=== PATIENT | female | born 1970 | race Caucasian/White ===

== ENCOUNTER → 2018-02-11 | Outpatient (CLI) | payer BC ==
--- NOTE | 2018-02-11 22:41 | US ---
EXAMINATION TYPE: US pelvis complete transvag DATE OF EXAM: 02/11/2018 COMPARISON: NONE CLINICAL HISTORY: 48-year-old female D25.9 Fibroid Uterus. TECHNIQUE: Transabdominal sonographic images of the pelvis were acquired. Transvaginal sonographic images were medically necessary to better assess the following anatomy: Ovaries and endometrium Date of LMP: 01/26/2018, A1 FINDINGS: EXAM MEASUREMENTS: Uterus: 7.7 x 4.9 x 3.9 cm Endometrial Stripe: 0.5 cm Right Ovary: 1.8 x 1.3 x 1.1 cm Left Ovary: 1.9 x 1.4 x 1.3 cm 1. Uterus: Anteverted Heterogenous. No focal fibroid is seen. An 8 mm left-sided myometrial cyst is noted. 2. Endometrium: wnl 3. Right Ovary: wnl 4. Left Ovary: wnl 5. Bilateral Adnexa: wnl 6. Posterior cul-de-sac: no free fluid Cervix- nabothian cyst IMPRESSION: 1. No focal fibroid identified. However, there is mild heterogeneity to the myometrium which can be s een with diffuse small fibroid change or adenomyosis. 2. An 8 mm myometrial cyst is also present. This is nonspecific but can also be seen in the setting o f adenomyosis.
== END | disposition home or self-care (01) ==
LOC: RADUSWWP 15:28
PROVIDERS: ATTEND Obstetrics & Gynecology
DX: N85.8 Other specified noninflammatory disorders of uterus (principal)
CPT/HCPCS: 76830; 76856

== ENCOUNTER → 2018-02-18 | Outpatient (CLI) | payer BC ==
--- NOTE | 2018-02-18 16:32 | MM ---
Reason for exam: screening (asymptomatic). Baseline mammogram. Physical Findings: Nurse did not find any significant physical abnormalities on exam. MG 3D Screening Mammo W/Cad Bilateral CC and MLO view(s) were taken. XCCL view(s) were taken of the right breast. No prior studies available for comparison. There are scattered fibroglandular densities. No discrete abnormality. These results were verbally communicated with the patient and result sheet given to the patient on 02/18/18. ASSESSMENT: Negative, BI-RAD 1 RECOMMENDATION: Routine screening mammogram of both breasts in 1 year.
== END | disposition home or self-care (01) ==
LOC: RADMAMWWP 15:41
PROVIDERS: ATTEND Obstetrics & Gynecology
DX: Z12.31 Encounter for screening mammogram for malignant neoplasm of breast (principal)
CPT/HCPCS: 77063; 77067

== ENCOUNTER → 2019-01-01 | Outpatient (CLI) | payer BC ==
--- NOTE | 2019-01-02 08:23 | CT ---
EXAMINATION TYPE: CT abdomen wo/w con DATE OF EXAM: 01/01/2019 COMPARISON: Ultrasound 12/30/2018 HISTORY: pancreatic mass CT DLP: 1047.8 mGycm CONTRAST: CT scan of the abdomen and pelvis is performed without Oral Contrast and without and with IV Contrast , patient injected with 120 mL of Isovue 370. FINDINGS: LUNG BASES-: No visible nodule. No infiltrate. LIVER/GB: There is evidence of cholelithiasis. No space occupying hepatic lesion. Biliary tree is of normal caliber. PANCREAS: No inflammation. No distinct mass. SPLEEN: No splenic enlargement. No lesion seen. ADRENALS: No nodule. No thickening. KIDNEYS/BLADDER: No hydronephrosis. Nonobstructing left-sided 4 mm calculus. No distinct renal mass. Urinary bladder grossly unremarkable. BOWEL: Normal appendix. Normal bowel caliber. No inflammation. LYMPH NODES: No greater than 1cm abdominal or pelvic lymph nodes are appreciated. AORTA: No significant abnormality. OSSEOUS STRUCTURES: No significant abnormality is seen. OTHER: No significant additional abnormality is seen. IMPRESSION: 1. No evidence of pancreatic mass. 2. Cholelithiasis.
== END | disposition home or self-care (01) ==
LOC: RADCTMAIN 16:35
PROVIDERS: ATTEND Internal Medicine
DX: K80.20 Calculus of gallbladder without cholecystitis without obstruction (principal); Z88.5 Allergy status to narcotic agent
CPT/HCPCS: 74170; Q9967

== ENCOUNTER → 2019-04-13 | Outpatient (CLI) | payer BC ==
--- NOTE | 2019-04-14 10:18 | MM ---
Reason for exam: screening (asymptomatic). Last mammogram was performed 1 year and 2 months ago. Physical Findings: A clinical breast exam by your physician is recommended on an annual basis and results should be correlated with mammographic findings. MG Screening Mammo w CAD Bilateral CC and MLO view(s) were taken. Prior study comparison: February 18, 2018, bilateral MG 3d screening mammo w/cad. The breast tissue is heterogeneously dense. This may lower the sensitivity of mammography. No suspicious abnormality. No significant changes when compared with prior studies. ASSESSMENT: Negative, BI-RAD 1 RECOMMENDATION: Routine screening mammogram of both breasts in 1 year.
== END | disposition home or self-care (01) ==
LOC: RADMAMWWP 15:12
PROVIDERS: ATTEND Internal Medicine
DX: Z12.31 Encounter for screening mammogram for malignant neoplasm of breast (principal)
CPT/HCPCS: 77067

== ENCOUNTER → 2020-04-07 | Outpatient (CLI) | payer BC ==
--- NOTE | 2020-04-07 09:01 | XR ---
EXAMINATION TYPE: XR KUB DATE OF EXAM: 04/07/2020 HISTORY: Pain Comparison: None.Single KUB is submitted for interpretation. Findings: Right renal calculi: None Visualized. Right ureteral calculi: None Visualized. Left renal calculi: 5.2 mm left ureteral calculus Left ureteral calculi: None Visualized. Pelvic calcifications: None Visualized. Bowel gas pattern is unremarkable. No free air. No mass effects. IMPRESSION: 1. Left renal calculus.
--- NOTE | 2020-04-07 09:02 | US ---
EXAMINATION TYPE: US kidneys/renal and bladder DATE OF EXAM: 04/07/2020 COMPARISON: NONE CLINICAL HISTORY: N20.0 Calculus of kidney. History of kidney stones EXAM MEASUREMENTS: Right Kidney: 11.2 x 4.2 x 5.1 cm Left Kidney: 10.5 x 4.7 x 4.9 cm Right Kidney: no evidence of hydronephrosis or mass Left Kidney: stone lower pole = 0.6cm Bladder: appears wnl Bilateral Jets seen: yes There is no evidence for hydronephrosis at this point in time. No masses are identified. The urinar y bladder is anechoic. Bilateral ureteral jets are seen. IMPRESSION: Nonobstructing nephrolithiasis.
== END | disposition home or self-care (01) ==
LOC: RADUSWWP 08:24
PROVIDERS: ATTEND Urology
DX: N20.0 Calculus of kidney (principal)
CPT/HCPCS: 74018; 76770

== ENCOUNTER → 2020-04-15 | Outpatient (CLI) | payer BC ==
--- NOTE | 2020-04-18 09:38 | MM ---
Reason for exam: screening (asymptomatic). Last mammogram was performed 1 year ago. Physical Findings: A clinical breast exam by your physician is recommended on an annual basis and results should be correlated with mammographic findings. MG 3D Screening Mammo W/Cad Bilateral CC and MLO view(s) were taken. Prior study comparison: April 13, 2019, bilateral MG screening mammo w CAD. February 18, 2018, bilateral MG 3d screening mammo w/cad. There are scattered fibroglandular densities. No significant changes when compared with prior studies. ASSESSMENT: Benign, BI-RAD 2 RECOMMENDATION: Routine screening mammogram of both breasts in 1 year.
== END | disposition home or self-care (01) ==
LOC: RADMAMWWP 10:20
PROVIDERS: ATTEND Internal Medicine
DX: Z12.31 Encounter for screening mammogram for malignant neoplasm of breast (principal)
CPT/HCPCS: 77063; 77067

== ENCOUNTER → 2020-05-02 | Outpatient (CLI) | payer BC ==
[2020-05-02 10:59] LABS: Basophils # (A) 0.1 k/uL (0-0.2); Basophils % (A) 1 %; Eosinophils # (A) 0.2 k/uL (0-0.7); Eosinophils % (A) 2 %; HCT 44.5 % (34.0-46.0); HGB 14.2 gm/dL (11.4-16.0); Lymphocytes % (A) 20 %; MCH 28.5 pg (25.0-35.0); MCV 89.1 fL (80.0-100.0); Mean Platelet Volume 6.6; Monocytes # (A) 0.6 k/uL (0-1.0); Monocytes % (A) 6 %; Neutrophils % (A) 70 %; Platelet Count 426 k/uL (150-450); RBC 4.99 m/uL (3.80-5.40); RDW 13.1 % (11.5-15.5); WBC 10.1 k/uL (3.8-10.6)
[2020-05-02 17:53] LABS: African American GFR (CKD) 75.5 (60.0-200.0); Anion Gap 11.4 mmol/L (4.00-12.00); Calcium 10.1 mg/dL (8.7-10.3); Carbon Dioxide 24.6 mmol/L (21.6-31.8); Non-African American GFR(CKD) 65.2 (60.0-200.0)
== END | disposition home or self-care (01) ==
LOC: LABWHC1 09:19
PROVIDERS: ATTEND Urology
DX: N20.0 Calculus of kidney (principal)
CPT/HCPCS: 36415; 80048; 85025

== ENCOUNTER → 2020-05-16 | Outpatient (CLI) | payer BC ==
--- NOTE | 2020-05-16 11:25 | XR ---
EXAMINATION TYPE: XR KUB DATE OF EXAM: 05/16/2020 HISTORY: Pain Comparison: 04/07/2020 Single KUB is submitted for interpretation. Findings: Right renal calculi: None Visualized. Right ureteral calculi: None Visualized. Left renal calculi: left renal calculus measuring approximately 4.3 mm versus 5.2 mm previously. Left ureteral calculi: None Visualized. Pelvic calcifications: None Visualized. Bowel gas pattern is unremarkable. No free air. No mass effects. IMPRESSION: 1. Left renal calculus.
== END | disposition home or self-care (01) ==
LOC: RADXRMAIN 08:58
PROVIDERS: ATTEND Urology
DX: N20.0 Calculus of kidney (principal); Z98.890 Other specified postprocedural states
CPT/HCPCS: 74018

== ENCOUNTER → 2020-08-10 | Outpatient (CLI) | payer BC ==
[2020-08-10 10:47] LABS: HCT 43.4 % (34.0-46.0); HGB 13.5 gm/dL (11.4-16.0); Hypochromasia Slight; MCH 27.5 pg (25.0-35.0); MCHC 31.2 g/dL (31.0-37.0); MCV 88.3 fL (80.0-100.0); Mean Platelet Volume 7.1; Platelet Count 408 k/uL (150-450); RBC 4.92 m/uL (3.80-5.40); RDW 14.2 % (11.5-15.5); WBC 10.3 k/uL (3.8-10.6)
[2020-08-10 10:55] LABS: Appearance,Urine Cloudy (Clear); Bacteria,Urine Rare /hpf; Bilirubin,Urine Negative (Negative); Blood,Urine Negative (Negative); Color,Urine Yellow; Glucose,Urine (UA) Negative (Negative); Ketones,Urine Negative (Negative); Leukocyte Esterase,Urine Small (Negative); Mucus,Urine Rare /hpf; Nitrite,Urine Negative (Negative); PH, Urine 5.5 (5.0-8.0); Protein,Urine Negative (Negative); RBC,Urine 3 /hpf (0-5); Specific Gravity,Urine 1.012 (1.001-1.035); Squamous Epithelial Cell,Urine 36 /hpf (0-4); Urobilinogen,Urine <2.0 mg/dL (<2.0); WBC,Urine 5 /hpf (0-5)
[2020-08-10 11:00] LABS: ALT 90 U/L (4-34); AST 42 U/L (14-36); African American GFR (CKD) >90 (>60 ml/min/1.73 sqM); Albumin 4.7 g/dL (3.5-5.0); Alkaline Phosphatase 79 U/L (38-126); Anion Gap 11 mmol/L; Blood Urea Nitrogen 16 mg/dL (7-17); Calcium 9.7 mg/dL (8.4-10.2); Carbon Dioxide 26 mmol/L (22-30); Chloride 103 mmol/L (98-107); Glucose 126 mg/dL (74-99); Non-African American GFR(CKD) 89 (>60 ml/min/1.73 sqM); Potassium 4.4 mmol/L (3.5-5.1); Sodium 140 mmol/L (137-145); Total Bilirubin 0.4 mg/dL (0.2-1.3); Total Protein 8.2 g/dL (6.3-8.2)
--- NOTE | 2020-08-10 14:11 | XR ---
EXAMINATION TYPE: XR chest 2V DATE OF EXAM: 08/10/2020 COMPARISON: 03/30/2015 INDICATION: Right side back tenderness TECHNIQUE: Frontal and lateral views of the chest are obtained. FINDINGS: The heart size is normal. The pulmonary vasculature is normal. The lungs are clear. IMPRESSION: 1. No acute pulmonary process.
--- NOTE | 2020-08-10 14:37 | XR ---
EXAMINATION TYPE: XR KUB DATE OF EXAM: 08/10/2020 COMPARISON: 05/16/2020 INDICATION: Right-sided back tenderness TECHNIQUE: Single view abdomen frontal projection FINDINGS: There is a normal bowel gas pattern. Fecal debris is within the colon. Psoas margins are normal. No organomegaly is present. Cholecystectomy clips are present. No suspicious calcifications are evident. IMPRESSION: 1. Unremarkable Abdomen
[2020-08-11 21:21] LABS: Hepatitis A Antibody IgM Non-Reactive (Non-Reactive); Hepatitis B Core IgM Non-Reactive (Non-Reactive); Hepatitis B Surface Antigen Non-Reactive (Non-Reactive); Hepatitis C IgG Antibody Non-Reactive (Non-Reactive)
== END | disposition home or self-care (01) ==
LOC: RADXRMAIN 08:23
PROVIDERS: ATTEND Internal Medicine
DX: N20.0 Calculus of kidney (principal); R10.9 Unspecified abdominal pain; R06.02 Shortness of breath
CPT/HCPCS: 36415; 71046; 74018; 80053; 80074; 81001; 85027

== ENCOUNTER → 2020-08-30 | Outpatient (CLI) | payer BC ==
--- NOTE | 2020-08-30 09:16 | US ---
EXAMINATION TYPE: US liver DATE OF EXAM: 08/30/2020 COMPARISON: CT abdomen January 01, 2019 CLINICAL HISTORY: R10.11 Right upper quadrant pain. Pt states RUQ/Right flank pain, GB removed EXAM MEASUREMENTS: Liver Length: 19.9 cm CBD: 0.9 cm Right Kidney: 11.4 x 4.2 x 5.1 cm Pancreas: wnl, tail obscured by overlying bowel gas Liver: Enlarged, heterogeneous, difficult to penetrate Gallbladder: Surgically absent Evidence for sonographic Babcock's sign: No CBD: wnl for post ryan Right Kidney: wnl Visualized pancreas within normal limits. Visualized liver heterogeneously hyperechoic without mass o r ductal dilatation seen on images saved. Gallbladder now noted surgically absent. No hydronephrosis right kidney. IMPRESSION: No acute findings are evident. Interval cholecystectomy changes noted.
== END | disposition home or self-care (01) ==
LOC: RADUSWWP 08:20
PROVIDERS: ATTEND Internal Medicine
DX: R10.11 Right upper quadrant pain (principal); Z90.49 Acquired absence of other specified parts of digestive tract
CPT/HCPCS: 76705

== ENCOUNTER 2020-10-19 06:38 | Emergency (ER) | payer BC ==
[2020-10-19 06:52] VITALS: BP 171/105; PULSE 102; RESP 18; TEMP 97.9
[2020-10-19] MEDS ORDERED: SODIUM CHLORIDE 0.9% 1,000 ML IV ONE (06:55)
--- NOTE | 2020-10-19 07:09 | ED ---
URI HPI - General Chief Complaint: Upper Respiratory Infection Stated Complaint: COVID+, weakness, flank pain Time Seen by Provider: 10/19/20 06:42 Source: patient Mode of arrival: ambulatory Limitations: no limitations - History of Present Illness Initial Comments: 50-year-old female presenting to the emergency department today for chief complaint of weakness, general malaise. Pt states that she has had symptoms of covid for the past 9 days, tsting positive on 10/14/20. Patient denies nausea, vomiting, diarrhea. Admits to occasional headaches, chills, fevers. pt states she has aches in her low back. Patient denies neck stiffness, abdominal pain, chest pain/pressure or shortness of breath. Patient on arrival appears well nontoxic in no distress. - Related Data Previous Rx's Medication Instructions Recorded traMADol HCl [Ultram] 50 mg PO Q4H PRN #20 tab 03/30/15 Allergies Allergy/AdvReac Type Severity Reaction Status Date / Time codeine Allergy Swelling Verified 03/30/15 14:02 Review of Systems ROS Statement: Those systems with pertinent positive or pertinent negative responses have been documented in the HPI. ROS Other: All systems not noted in ROS Statement are negative. Past Medical History Past Medical History: Hypertension History of Any Multi-Drug Resistant Organisms: None Reported Past Surgical History: No Surgical Hx Reported Past Psychological History: No Psychological Hx Reported Smoking Status: Never smoker Past Alcohol Use History: None Reported Past Drug Use History: None Reported General Exam - General Exam Comments Initial Comments: General: The patient is awake and alert, in no distress, and does not appear acutely ill. Eye: +3 mm pupils are equal, round and reactive to light, extra-ocular movements are intact. No nystagmus. There is normal conjunctiva bilaterally. No signs of icterus. Ears, nose, mouth and throat: There are moist mucous membranes and no oral lesions. Neck: The neck is supple, there is no tenderness or JVD. Cardiovascular: There is a regular rate and rhythm. No murmur, rub or gallop is appreciated. Respiratory: Lungs are clear to auscultation, respirations are non-labored, breath sounds are equal. No wheezes, stridor, rales, or rhonchi. Gastrointestinal: Soft, non-distended, non-tender abdomen without masses or organomegaly noted. There is no rebound or guarding present. Musculoskeletal: Normal ROM, no tenderness. Strength 5/5. Sensation intact. Pulses equal bilaterally 2+. Neurological: A&O x 3. CN II-XII intact, There are no obvious motor or sensory deficits. Coordination appears grossly intact. Speech is normal. Skin: Skin is warm and dry and no rashes or lesions are noted. Psychiatric: Cooperative, appropriate mood & affect, normal judgment. Limitations: no limitations Course Vital Signs 10/19/20 06:46 Temperature 97.9 F Pulse Rate 102 H Respiratory 18 Rate Blood Pressure 171/105 O2 Sat by Pulse 97 Oximetry Medical Decision Making - Medical Decision Making 50-year-old, positive female with symptoms x 9 days. meets criteria for BAM. pt otherwise does not have any complaints of dyspnea/chest pain. patient lungs clear. pt educated on monoclonal ab and would like to proceed infused wtihout reaction, hydrated and discharged appearing well. return parameters discussed. - Lab Data Result diagrams: 10/19/20 07:00 10/19/20 07:00 Lab Results 10/19/20 10/19/20 10/19/20 Range/Units 07:00 07:00 07:07 WBC 5.3 (3.8-10.6) k/uL RBC 4.60 (3.80-5.40) m/uL Hgb 13.4 (11.4-16.0) gm/dL Hct 38.0 (34.0-46.0) % MCV 82.5 (80.0-100.0) fL MCH 29.1 (25.0-35.0) pg MCHC 35.3 (31.0-37.0) g/dL RDW 13.3 (11.5-15.5) % Plt Count 277 (150-450) k/uL MPV 6.9 Neutrophils % 75 % Lymphocytes % 16 % Monocytes % 5 % Eosinophils % 1 % Basophils % 1 % Neutrophils # 4.0 (1.3-7.7) k/uL Lymphocytes # 0.9 L (1.0-4.8) k/uL Monocytes # 0.3 (0-1.0) k/uL Eosinophils # 0.1 (0-0.7) k/uL Basophils # 0.0 (0-0.2) k/uL Sodium 139 (137-145) mmol/L Potassium 4.4 (3.5-5.1) mmol/L Chloride 107 (98-107) mmol/L Carbon Dioxide 24 (22-30) mmol/L Anion Gap 8 mmol/L BUN 10 (7-17) mg/dL Creatinine 0.70 (0.52-1.04) mg/dL Est GFR (CKD-EPI)AfAm >90 (>60 ml/min/1.73 sqM) Est GFR (CKD-EPI)NonAf >90 (>60 ml/min/1.73 sqM) Glucose 119 H (74-99) mg/dL Calcium 8.5 (8.4-10.2) mg/dL Total Bilirubin 0.6 (0.2-1.3) mg/dL AST 162 H (14-36) U/L ALT 242 H (4-34) U/L Alkaline Phosphatase 160 H (38-126) U/L Total Protein 7.4 (6.3-8.2) g/dL Albumin 4.1 (3.5-5.0) g/dL Coronavirus (PCR) Detected A (Not Detectd) Disposition Clinical Impression: COVID-19, Generalized weakness, Fatigue Disposition: HOME SELF-CARE Condition: Good Instructions (If sedation given, give patient instructions): Coronavirus Disease 2019 (COVID-19) Additional Instructions: Please use medication as discussed. Please follow-up with family doctor in the next 2 days. Please return to emergency room if the symptoms increase or worsen or for any other concerns. Is patient prescribed a controlled substance at d/c from ED?: No Referrals: Kaycee Welch MD [Primary Care Provider] - 1-2 days Time of Disposition: 07:44
[2020-10-19 07:18] LABS: Basophils % (A) 1 %; Eosinophils # (A) 0.1 k/uL (0-0.7); Eosinophils % (A) 1 %; HGB 13.4 gm/dL (11.4-16.0); Lymphocytes # (A) 0.9 k/uL (1.0-4.8); Lymphocytes % (A) 16 %; MCH 29.1 pg (25.0-35.0); MCHC 35.3 g/dL (31.0-37.0); MCV 82.5 fL (80.0-100.0); Mean Platelet Volume 6.9; Monocytes # (A) 0.3 k/uL (0-1.0); Monocytes % (A) 5 %; Neutrophils % (A) 75 %; Platelet Count 277 k/uL (150-450); RDW 13.3 % (11.5-15.5); WBC 5.3 k/uL (3.8-10.6)
[2020-10-19 07:32] LABS: ALT 242 U/L (4-34); AST 162 U/L (14-36); African American GFR (CKD) >90 (>60 ml/min/1.73 sqM); Albumin 4.1 g/dL (3.5-5.0); Alkaline Phosphatase 160 U/L (38-126); Anion Gap 8 mmol/L; Blood Urea Nitrogen 10 mg/dL (7-17); Calcium 8.5 mg/dL (8.4-10.2); Carbon Dioxide 24 mmol/L (22-30); Chloride 107 mmol/L (98-107); Glucose 119 mg/dL (74-99); Non-African American GFR(CKD) >90 (>60 ml/min/1.73 sqM); Potassium 4.4 mmol/L (3.5-5.1); Sodium 139 mmol/L (137-145); Total Bilirubin 0.6 mg/dL (0.2-1.3); Total Protein 7.4 g/dL (6.3-8.2)
[2020-10-19] MEDS ORDERED: BAMLANIVIMAB (EUA) 700 MG, ETESEVIMAB (EUA) 1,400 MG in SODIUM CHLORIDE 0.9% 50 ML IVPB ONE (08:00)
[2020-10-19] MEDS ORDERED: SODIUM CHLORIDE 0.9% 50 ML IVPB ONE (08:00)
== END 2020-10-19 09:18 | disposition home or self-care (01) ==
LOC: EC 06:38
DX: U07.1 COVID-19 (principal); I10 Essential (primary) hypertension; Z88.5 Allergy status to narcotic agent
CPT/HCPCS: 36415; 80053; 85025; 87635; 99284; 96365; Q0245

== ENCOUNTER → 2021-11-08 | Outpatient (CLI) | payer BC ==
--- NOTE | 2021-11-10 10:54 | MM ---
Reason for exam: screening (asymptomatic). Last mammogram was performed 1 year and 7 months ago. Physical Findings: A clinical breast exam by your physician is recommended on an annual basis and results should be correlated with mammographic findings. MG 3D Screening Mammo W/Cad Bilateral CC and MLO view(s) were taken. XCCL view(s) were taken of the right breast. Prior study comparison: April 15, 2020, bilateral MG 3d screening mammo w/cad. April 13, 2019, bilateral MG screening mammo w CAD. There are scattered fibroglandular densities. There is no discrete abnormality. No significant changes when compared with prior studies. ASSESSMENT: Negative, BI-RAD 1 RECOMMENDATION: Routine screening mammogram of both breasts in 1 year.
== END | disposition home or self-care (01) ==
LOC: RADMAMWWP 09:33
PROVIDERS: ATTEND Internal Medicine
DX: Z12.31 Encounter for screening mammogram for malignant neoplasm of breast (principal)
CPT/HCPCS: 77063; 77067

== ENCOUNTER 2022-02-14 06:25 | Day surgery (SDC) | payer BC ==
[2022-02-09 15:31] VITALS: BMI 32.4
[~2022-02-14 06:25] MED LIST: DEXAMETHASONE SOD PHOSPHATE 4 MG/ML 1 ML VIAL IV ONE; DEXAMETHASONE SOD PHOSPHATE 4 MG/ML 1 ML VIAL IV PRN; FAMOTIDINE 20 MG/2 ML VIAL IV PRN; LACTATED RINGERS 1,000 ML IV SCH; ONDANSETRON 4 MG/2 ML VIAL IVP ONE; ONDANSETRON 4 MG/2 ML VIAL IVP PRN; fentaNYL (PF) 50 MCG/ML 2 ML AMP IV PRN
[2022-02-14] MEDS ORDERED: LIDOCAINE 1% (10MG/ML) FOR IV START INTRADERMA ONE (07:11)
[2022-02-14] MEDS ORDERED: SCOPOLAMINE 1 MG/72 HR PATCH TRANSDERM ONE (07:12)
[2022-02-14] MEDS ORDERED: GLYCOPYRROLATE 0.2 MG/ML 2 ML VIAL ONE (07:17)
[2022-02-14] MEDS ORDERED: MIDAZOLAM 2 MG/2 ML VIAL ONE (07:17)
[2022-02-14] MEDS ORDERED: SUCCINYLCHOLINE CHLORIDE 200 MG/10 ML VIAL IV ONE (07:17)
[2022-02-14] MEDS ORDERED: PROPOFOL 10 MG/ML 20 ML VIAL IV ONE (07:17)
[2022-02-14] MEDS ORDERED: ACETAMINOPHEN IV (For NPO) 1,000 MG/100 ML VIAL ONE (07:17)
[2022-02-14] MEDS ORDERED: fentaNYL (PF) 50 MCG/ML 2 ML AMP ONE (07:17)
[2022-02-14] MEDS ORDERED: LIDOCAINE 2% INJ 20 MG/ML (2 ML VIAL) ONE (07:17)
[2022-02-14] MEDS ORDERED: DEXAMETHASONE SOD PHOSPHATE 10 MG/ML 1 ML VIAL ONE (07:17)
--- NOTE | 2022-02-14 07:54 | P.OP ---
Date of Procedure: 02/14/22 Preoperative Diagnosis: Chronic cryptic tonsillitis Postoperative Diagnosis: Same Procedure(s) Performed: Tonsillectomy Anesthesia: RAFAEL Surgeon: Goerge Maxwell Estimated Blood Loss (ml): 3 Pathology: other (Bilateral tonsils) Condition: stable Disposition: PACU Indications for Procedure: This is a 52-year-old white female with chronic cryptic tonsillitis Operative Findings: Tonsils +2.5 bilaterally the are cryptic was sulfur granules in the crypts Description of Procedure: PROCEDURE: The patient brought to the operating suite and was placed in the supine position. The patient underwent induction of anesthesia with oral endotracheal intubation without difficulty. The patient is positioned with a head donut and shoulder roll. The patient was prepped and draped in the usual aseptic fashion. The left tonsil was then grasped with a curved Allis clamp and then dissected from the tonsillar fossa in a superior to inferior direction using both blunt and electrocautery dissection in the superior to inferior direction until the tonsil was removed. Once the tonsil was removed, hemostasis was gained with suction cautery. Once hemostatis was obtained the attention was turned to the right where the right tonsil was removed exactly as the left had been. Once this tonsil was removed, hemostasis was gained with suction cautery. Once this tonsil was removed, hemostasis was gained with suction cautery. Once hemostasis was obtained and remained good in both tonsillar fossae , the patient was suction in oral gastric fashion and the McIvor mouth gag was removed. The patient was allowed to emerge from general anesthesia having tolerated the procedure well. The patient was extubated in the operating suite and transferred to the postoperative recovery area in satisfactory condition.
[2022-02-14 08:10] VITALS: TEMP 96.9
[2022-02-14 08:41] VITALS: PULSE 58; RESP 16
[2022-02-14 09:33] VITALS: BP 157/73
== END 2022-02-14 10:13 | disposition home or self-care (01) ==
LOC: OR 06:25
PROVIDERS: ATTEND Otolaryngology
DX: J35.01 Chronic tonsillitis (principal); I10 Essential (primary) hypertension; R51.9 Headache, unspecified; Z87.442 Personal history of urinary calculi; Z87.891 Personal history of nicotine dependence; Z98.890 Other specified postprocedural states; Z90.49 Acquired absence of other specified parts of digestive tract; Z79.891 Long term (current) use of opiate analgesic; Z79.899 Other long term (current) drug therapy; Z88.5 Allergy status to narcotic agent; Z88.2 Allergy status to sulfonamides
CPT/HCPCS: 81025; 88304; 42826; J2250; J0330; J1100 ×2; J0690; J2405; J3010; J0131; J2704; J2001

== ENCOUNTER → 2022-10-27 | Outpatient (CLI) | payer BC ==
[2022-10-27 13:39] LABS: HCT 43.1 % (37.2-46.3); HGB 13.8 g/dL (12.0-15.0); MCV 87.6 fL (80.0-97.0); Mean Platelet Volume 9.7 fL (9.5-12.2); NRBC Per 100 WBC 0 /100 WBCS (0.0-0.0); Platelet Count 434 X 10*3/uL (140-440); RBC 4.92 X 10*6/uL (4.10-5.20); RDW 13.7 % (11.5-14.5); WBC 8.91 X 10*3/uL (4.50-10.00)
[2022-10-27 13:44] LABS: Appearance,Urine Turbid (Clear); Bacteria,Urine Trace /HPF (None Seen); Bilirubin,Urine Negative (Negative); Blood,Urine Negative (Negative); Color,Urine Dark Yellow (Yellow); Ketones,Urine Trace mg/dL (Negative); Nitrite,Urine Negative (Negative); PH, Urine 5.5 (5.0-8.0); Specific Gravity,Urine 1.029 (1.001-1.030); Urobilinogen,Urine 0.2 (0.2,1.0)
[2022-10-27 14:06] LABS: ALT 128 U/L (8-44); AST 56 U/L (13-35); African American GFR (CKD) 84.6 (60.0-200.0); BUN/Creat Ratio 16.89 Ratio (12.00-20.00); Blood Urea Nitrogen 15.2 mg/dL (9.0-27.0); Calcium 9.8 mg/dL (8.7-10.3); Carbon Dioxide 22.9 mmol/L (20.0-27.5); Chloride 107 mmol/L (96-109); Chol/HDL Ratio 1.93 Ratio; Glucose 116 mg/dL (70-110); LDL Cholesterol,Calculated 50.2 mg/dL (0.0-131.0); Potassium 4.6 mmol/L (3.5-5.5); Sodium 143 mmol/L (135-145); VLDL Calculation 9.46 mg/dL (5.00-40.00)
== END | disposition home or self-care (01) ==
LOC: LABWHC1 08:37
PROVIDERS: ATTEND Family Medicine
DX: I10 Essential (primary) hypertension (principal); E66.3 Overweight
CPT/HCPCS: 36415; 80048; 80061; 81001; 82306; 83036; 84443; 84450; 84460; 85027

== ENCOUNTER → 2024-11-26 | Outpatient (CLI) | payer BC ==
--- NOTE | 2024-11-26 08:22 | CT ---
EXAMINATION TYPE: CT soft tissue neck w con DATE OF EXAM: 11/26/2024 7:52 AM COMPARISON: None. CLINICAL INDICATION: Female, 54 years old with history of J39.2 OTHER DISEASES OF PHARYNX; PHH, Cyst in throat TECHNIQUE: CT soft tissues of the neck after IV contrast administration. Coronal and sagittal reforma ts were obtained. Contrast used:100 ml mL of Isovue 300 with IV Contrast, CT DLP: 455 mGycm, Automated exposure control for dose reduction was used. FINDINGS: Visualized intracranial structures, orbits and globes, paranasal sinuses, and mastoid air cells appea r clear. The nasopharynx is clear. Moderate hypertrophy of the lingual tonsils noted. Oropharynx otherwise clear. Epiglottis and prevertebral soft tissues are satisfactory. The glottic and subglottic structures as well as the tracheal column and visualized upper lungs are c lear. The thyroid gland, submandibular glands, and mildly atrophic parotid glands show no gross abnormality . Scattered nonenlarged lymph nodes are present along both sides of the neck. Bones: No osseous destructive process. IMPRESSION: 1. Moderate lingual tonsillar hypertrophy. 2. Otherwise, no suspicious mucosal space lesion or adenopathy is seen. If persistent concern for cys t in the throat, the exam can be reviewed with directed attention. [facility], , 11/26/2024 8:20 AM
== END | disposition home or self-care (01) ==
LOC: RADCTMAIN 07:20
PROVIDERS: ATTEND Student in an Organized Health Care Education/Training Program
DX: J35.1 Hypertrophy of tonsils (principal); J39.2 Other diseases of pharynx
CPT/HCPCS: 70491; Q9967